=== PATIENT | female | born 1950 | race Caucasian/White ===

== ENCOUNTER → 2016-07-23 13:09 | Outpatient (CLI) | payer MEDICARE, OTHER ==
[2014-12-06 08:45] VITALS: BMI 36.5
[~2016-07-23 13:09] MED LIST: BAYER CHEWABLE81 MG PO; BIOTIN5 MG PO; DILAUDID2 MG PO; PRAVACHOL40 MG PO; PRILOSEC20 MG PO; PROZAC20 MG PO; ZESTRIL20 MG PO; ZYRTEC10 MG PO
== END | disposition home or self-care (01) ==
LOC: D.MRI 13:09
DX: M54.2 Cervicalgia (principal)

== ENCOUNTER → 2016-11-15 08:09 | Outpatient (CLI) | payer MEDICARE, OTHER ==
[2014-12-06 08:45] VITALS: BMI 36.5
== END | disposition home or self-care (01) ==
LOC: D.RAD 08:09
DX: K21.9 Gastro-esophageal reflux disease without esophagitis (principal); R13.12 Dysphagia, oropharyngeal phase

== ENCOUNTER → 2016-11-16 12:40 | Outpatient (CLI) | payer MEDICARE, OTHER ==
[2014-12-06 08:45] VITALS: BMI 36.5
== END | disposition home or self-care (01) ==
LOC: D.RAD 11-15 08:30
DX: K21.9 Gastro-esophageal reflux disease without esophagitis (principal); R13.12 Dysphagia, oropharyngeal phase; R05 Cough

== ENCOUNTER 2016-12-21 05:17 | Day surgery (SDC) | payer MEDICARE, OTHER ==
[2016-12-20 12:29] LABS: BASOPHILS 0.4 % (0-2); EOSINOPHILS 1.1 % (0-7); HEMOGLOBIN 12.9 g/dL (12-16); IMMATURE GRANULOCYTES 0.2 % (0-5); LYMPHOCYTES 27.2 % (15-50); MCH 30.1 pg (26.0-34.0); MCHC 33.1 g/dL (31.0-37.0); MCV 91.1 fL (80.0-100.0); MEAN PLATELET VOLUME 10.4 fL (7.4-10.4); MONOCYTES 6.9 % (2-11); NEUTROPHILS 64.2 % (40-80); PLATELET COUNT 186 10x3/uL (130-400); RBC 4.28 10x6/uL (4.00-5.40); WBC 5.7 10x3/uL (4.8-10.8)
[2016-12-20 12:32] LABS: ANION GAP 11.1 mmol/L (8-16); CALCIUM 8.4 mg/dL (8.5-10.1); CARBON DIOXIDE 27.3 mmol/L (21.0-32.0); CREATININE - SERUM 0.9 mg/dL (0.6-1.3); POTASSIUM - SERUM 4.4 mmol/L (3.5-5.1)
[~2016-12-21 05:17] MED LIST changes: +CALTRATE 600 M600 M1 PO; +CARAFATE1 G PO; +NEXIUM20 MG PO; +NEXIUM40 MG PO; +PEPCID40 MG; +VITAMIN D2000 UNIT PO
[2016-12-21 08:51] VITALS: BP 149/77; BMI 37.0
--- NOTE | 2016-12-21 12:30 | NUR ---
THE PATIENT REPORTS SHE HAS CHRONIC NECK PAIN AND HAS THIS SAME DISCOMFORT IN RECOVERY. DILAUDID ADMIN FOR DISCOMFORT IN NECK
[2016-12-21 12:53] VITALS: BP 143/87
--- NOTE | 2016-12-21 12:56 | NUR ---
PT RECIEVED TO ROOM 2225 VIA BED FROM RECOVERY ROOM BEDSIDE REPORT GIVEN PER LUCIANA TAYLOR. LAP SITES X 5 NOTED WITH BANDAIDS CLEAN DRY AND INTACT MINIMAL OOZING NOTED TO LAP SITE LEFT UQ. COMPLAIN OF ARTHRITIC PAIN IN NECK REPOSITIONED FOR COMFORT VS WNL ON O2 AT 2LPM NC. ORINETD TO ROOM AND STAFF CALL LIGHT IN REACH. FAMILY AT SIDE
[2016-12-21 14:13] VITALS: BP 143/87; BMI 36.6
--- NOTE | 2016-12-21 14:40 | NUR ---
STATES PAIN IS MUCH MORE BETTER AT A 4 NOW.
[2016-12-21 15:46] VITALS: BP 108/58
--- NOTE | 2016-12-21 16:20 | NUR ---
RESTING WITH EYES CLOSED. RESP EVEN AND UNLABORED. CALL LIGHT IN REACH.
--- NOTE | 2016-12-21 18:55 | NUR ---
IV TYLENOL AND REGLAN ADMINISTERED. INCENTIVE SPIROMETER GIVEN TO PATIENT AND EXPLAINED USE WITH RETURN DEMONSTRATION. NO OTHER CHANGES IN INITIAL ASSESSMENT. CALL LIGHT IN REACH. AT BEDSIDE. WILL CONTINUE WITH PLAN OF CARE.
--- NOTE | 2016-12-21 19:17 | NUR ---
ASSISTED TO BR AND BACK TO BED WITH 400 CC URINE RETURN
[2016-12-21 20:00] VITALS: BP 109/70
--- NOTE | 2016-12-22 01:44 | NUR ---
PATIENT RESTING IN BED WITH EYES CLOSED AND GUEST AT BEDSIDE. NO VISIBLE SIGNS OF DISTRESS. BED IN LOWEST POSITION AND CALL LIGHT WITHIN REACH.
[2016-12-22 04:00] VITALS: BP 107/52
[2016-12-22 06:07] LABS: CALC OSMOLALITY 274 mosm/kg (275-300); CALCIUM 7.9 mg/dL (8.5-10.1); CHLORIDE - SERUM 104 mmol/L (98-107); CREATININE - SERUM 0.8 mg/dL (0.6-1.3); GLUCOSE 103 mg/dL (74-106); SODIUM 137 mmol/L (136-145); eGFR NON AFRICAN AMERICAN 76 mL/min (90-120)
[2016-12-22 06:31] LABS: UREA NITROGEN 14 mg/dL (7-18)
[2016-12-22 06:42] LABS: BASOPHILS 0 % (0-2); EOSINOPHILS 0 % (0-7); HEMATOCRIT 34.8 % (36.0-48.0); HEMOGLOBIN 11.5 g/dL (12-16); IMMATURE GRANULOCYTES 0.2 % (0-5); LYMPHOCYTES 9.6 % (15-50); MCH 30.1 pg (26.0-34.0); MCV 91.1 fL (80.0-100.0); MEAN PLATELET VOLUME 10.7 fL (7.4-10.4); MONOCYTES 5.5 % (2-11); NEUTROPHILS 84.7 % (40-80); PLATELET COUNT 181 10x3/uL (130-400); RBC 3.82 10x6/uL (4.00-5.40); RDW 12.8 % (11.5-14.5)
[2016-12-22 06:48] LABS: WBC 9.3 10x3/uL (4.8-10.8)
--- NOTE | 2016-12-22 07:20 | NUR ---
REPORT RECEIVED FROM ASSEMBLER TRIM NURSE. CALL LIGHT IN REACH.
[2016-12-22 07:50] VITALS: BP 106/42
--- NOTE | 2016-12-22 08:32 | NUR ---
ASSESSMENT COMPLETED. SCDs TO BLE. CALL LIGHT IN REACH. WILL CONTINUE WITH PLAN OF CARE.
--- NOTE | 2016-12-22 09:40 | NUR ---
AT BEDSIDE. DENIES NEEDS AT THIS TIME. CALL LIGHT IN REACH/
--- NOTE | 2016-12-22 11:44 | NUR ---
PATIENT IN BED WITH EYES OPEN AT THIS TIME. NO COMPLAINTS OR SIGNS OF DISTRESS. DENIES ANY NEEDS AT THIS TIME. FAMILY AT BEDSIDE. CALL LIGHT WITHIN REACH.
[2016-12-22 12:11] VITALS: BP 104/44
--- NOTE | 2016-12-22 12:47 | NUR ---
REGTHERESE IVP PER ORDER. CALL LIGHT IN REACH.
--- NOTE | 2016-12-22 12:51 | NUR ---
NEWBORN PHOTOGRAPHER DC'D PER MD ORDER.
--- NOTE | 2016-12-22 13:33 | NUR ---
AMBULATED 500 FEET IN HALLWAY WITH STANDBY ASSIST. TOLERATED WELL. ALSO TOLERATED CLEAR LIQUID DIET WITH NO N/V AFTERWARDS. IN ROOM. CALL LIGHT IN REACH.
--- NOTE | 2016-12-22 14:45 | NUR ---
RASH NOTED TO FACE, CHEST, AND BILATERAL ARMS. SPOKE WITH DR. AU ABOUT IT. NEW ORDERS RECEIVED FOR BENADRYL.
--- NOTE | 2016-12-22 14:51 | NUR ---
BENADRYL 25 MG PO PER MD ORDER. CALL LIGHT IN REACH.
[2016-12-22 15:48] VITALS: BP 97/47
[2016-12-22] MEDS ORDERED: REGLAN10 MG PO (16:49)
[2016-12-22] MEDS ORDERED: DILAUDID2 MG PO (16:49)
--- NOTE | 2016-12-22 16:58 | NUR ---
IV DC'D WITH TIP INTACT.
--- NOTE | 2016-12-22 17:54 | NUR ---
DILAUDID 2 MG PO PER C/O PAIN OF 9. DC INSTRUCTIONS EXPLAINED TO PATIENT. RX FOR DILAUDID HANDED TO PATIENT. DC INSTRUCTIONS EXPLAINED TO PATIENT AND . BOTH VERBALIZED UNDERSTANDING. DC'D TO VEHICLE VIA WC WITH .
--- NOTE | 2016-12-24 14:02 | OP ---
PATIENT NAME: TOÑITO REEDER [facility] MEDICAL RECORD: [id number] :50 LOCATION:D.OPS ADMISSION DATE: SURGEON: MAYANK AU MD DATE OF OPERATION: 12/21/2016 PREOPERATIVE DIAGNOSES: 1. Gastroesophageal reflux disease. 2. Hiatal hernia. 3. Coronary artery disease. 4. Hypertension. 5. Hypercholesterolemia. 6. Fibromyalgia. POSTOPERATIVE DIAGNOSES: 1. Gastroesophageal reflux disease. 2. Hiatal hernia. 3. Coronary artery disease. 4. Hypertension. 5. Hypercholesterolemia. 6. Fibromyalgia. PROCEDURE: Laparoscopic Becky fundoplication with hiatal hernia repair. SURGEON: Mayank Au MD REPORT OF PROCEDURE: The patient's abdomen was prepped and draped in sterile fashion. A Veress needle was inserted in the left upper quadrant and the abdomen was insufflated. An 11-mm Visiport trocar was inserted in the midline just above the umbilicus. Once inside, I could see the Veress needle and there was no sign of any injury to bowel or surrounding structures. The Veress needle was then removed. A 5-mm trocar was placed in the left lateral abdomen. Using this, I was able to take down some adhesions of the omentum to the anterior abdominal wall from the patient's left upper quadrant. Once these adhesions were freed, then the 11-mm trocar was placed in the left subcostal region. A 5-mm trocar was placed in the epigastrium and a final 5-mm trocar was placed in the right lateral subcostal region. A liver retractor was inserted and the left lobe of the liver was elevated. The patient had a moderate-sized hiatal hernia with about a third of the stomach up in the chest. The lesser omentum was taken down using Harmonic scalpel and this dissection was continued up to the right side of the right maritza. We dissected out this maritza and we extended our dissection up into the chest cavity. Once we had gone as far as we could, then we came to the greater curvature of the stomach and took down the short gastrics using Harmonic scalpel. This was continued from the body of the stomach to the left side of the right maritza. This crura was dissected free from the surrounding attachments and at this point we had a 360-degree inspection of the esophagus. We continued our dissection up into the thoracic cavity to take down any adhesions. At this point, the stomach easily came down out of the thoracic cavity and rested comfortably in the abdomen. The esophageal hiatus was then reapproximated with interrupted 0 Polydek times 3. The fundus of the stomach was then pulled around in a 360-degree fashion and a Becky wrap was performed. This was done using interrupted 0 Polydek times 3 with the top and the bottom suture incorporating a bite of the esophagus. The wrap appeared to lie in good position. There was no sign of any active bleeding. We then irrigated out the abdomen thoroughly with normal saline. The liver retractor was removed. At this point, the ports and insufflation were then removed. The 11-mm trocar site OPERATIVE REPORT [id number] TOÑITO REEDER JOSH fascias were closed with 0 Vicryl using a Alonzo-Ronald suture passer device. The subcutaneous tissues were then irrigated out and infused with a total of 20 mL of 0.25% Marcaine with epinephrine. The skin incisions were all closed with subcutaneous 5-0 Monocryl and dressed appropriately. COMPLICATIONS: None. CONDITION: Stable. ANESTHESIA: General endotracheal and local. BLOOD LOSS: Minimal. TRANSINT:[id number] Voice Confirmation ID: [id number] DOCUMENT ID: [id number] MAYANK AU MD at 1402 CC: CAS SESAY MD and HIPOLITO CLAYTON MD [id number] DICTATION DATE: 12/21/16 1213 BUSINESS LEADER: 12/21/16 1248 [facility] 12/22/16 [id number] [place] [address]
== END 2016-12-22 17:54 | disposition home or self-care (01) ==
LOC: D.MS 05:17 → D.OPS 05:17 → D.PAN 09:30 → D.OPS 10:00 → D.MS 12:49 → D.OPS 12-22 17:54
PROVIDERS: Surgery
DX: K21.9 Gastro-esophageal reflux disease without esophagitis (principal); K44.9 Diaphragmatic hernia without obstruction or gangrene; I25.10 Atherosclerotic heart disease of native coronary artery without angina pectoris; I10 Essential (primary) hypertension; E78.00 Pure hypercholesterolemia, unspecified; M79.7 Fibromyalgia; Z01.812 Encounter for preprocedural laboratory examination

== ENCOUNTER → 2017-02-04 08:51 | Outpatient (CLI) | payer MEDICARE, OTHER ==
[~2017-02-04 08:51] MED LIST changes: +MIRALAX17 GM PO; +REGLAN10 MG PO
== END | disposition home or self-care (01) ==
LOC: D.RAD 08:51
DX: R13.10 Dysphagia, unspecified (principal)

== ENCOUNTER 2017-02-07 19:57 | Emergency (ER) | payer MEDICARE, OTHER ==
[~2017-02-07 19:57] MED LIST changes: -MIRALAX17 GM PO
[2017-02-07 20:39] LABS: BASOPHILS 0.2 % (0-2); EOSINOPHILS 0.3 % (0-7); HEMATOCRIT 41.1 % (36.0-48.0); HEMOGLOBIN 13.5 g/dL (12-16); IMMATURE GRANULOCYTES 0.1 % (0-5); LYMPHOCYTES 16.4 % (15-50); MCH 30.1 pg (26.0-34.0); MCHC 32.8 g/dL (31.0-37.0); MCV 91.5 fL (80.0-100.0); MONOCYTES 4.8 % (2-11); NEUTROPHILS 78.2 % (40-80); PLATELET COUNT 227 10x3/uL (130-400); RBC 4.49 10x6/uL (4.00-5.40); RDW 12.9 % (11.5-14.5); WBC 9.1 10x3/uL (4.8-10.8)
[2017-02-07 20:52] LABS: APPEARANCE CLEAR (CLEAR); BILIRUBIN NEGATIVE (NEGATIVE); COLOR YELLOW (YELLOW); GLUCOSE NEGATIVE (NEGATIVE); KETONE NEGATIVE (NEGATIVE); NITRITE NEGATIVE (NEGATIVE); PROTEIN NEGATIVE (NEGATIVE); UROBILINOGEN NORMAL (NORMAL)
[2017-02-07 20:58] LABS: ALBUMIN 3.9 g/dL (3.4-5.0); ANION GAP 15.1 mmol/L (8-16); BILIRUBIN - TOTAL 0.3 mg/dL (0.2-1.3); CALCIUM 8.8 mg/dL (8.5-10.1); CARBON DIOXIDE 24.9 mmol/L (21.0-32.0); CREATININE - SERUM 0.9 mg/dL (0.6-1.3); PROTEIN - SERUM 7.3 g/dL (6.4-8.2)
== END 2017-02-08 02:43 | disposition home or self-care (01) ==
LOC: D.ER 19:57
PROVIDERS: Emergency Medicine
DX: R10.9 Unspecified abdominal pain (principal)

== ENCOUNTER 2017-02-09 11:12 | Inpatient (IN) | payer MEDICARE, OTHER ==
[~2017-02-09] VITALS: Ht 157.5 cm; Wt 84.8 kg
[2017-02-09 12:16] VITALS: BP 105/57; BMI 34.3
[2017-02-09 12:35] LABS: BASOPHILS 0 % (0-2); EOSINOPHILS 0 % (0-7); HEMATOCRIT 40.9 % (36.0-48.0); HEMOGLOBIN 13.3 g/dL (12-16); IMMATURE GRANULOCYTES 0.2 % (0-5); MCH 30.4 pg (26.0-34.0); MCHC 32.5 g/dL (31.0-37.0); MCV 93.4 fL (80.0-100.0); MEAN PLATELET VOLUME 10.8 fL (7.4-10.4); MONOCYTES 5.6 % (2-11); NEUTROPHILS 89.2 % (40-80); PLATELET COUNT 197 10x3/uL (130-400); RBC 4.38 10x6/uL (4.00-5.40); RDW 12.9 % (11.5-14.5)
[2017-02-09 12:53] LABS: ALBUMIN 3.3 g/dL (3.4-5.0); BILIRUBIN - TOTAL 0.46 mg/dL (0.2-1.3); CALCIUM 8.6 mg/dL (8.5-10.1); CREATININE - SERUM 0.9 mg/dL (0.6-1.3); POTASSIUM - SERUM 3.7 mmol/L (3.5-5.1); PROTEIN - SERUM 6.5 g/dL (6.4-8.2)
[2017-02-09 12:55] LABS: CARBON DIOXIDE 31.7 mmol/L (21.0-32.0)
[2017-02-09 12:59] LABS: WBC 13.5 10x3/uL (4.8-10.8)
--- NOTE | 2017-02-09 15:00 | NUR ---
SPOKE WITH DR AU TO NOTIFY HIM NGT WAS PLACED BEFORE ACKNOWLEDGING ORDER, DR AU IS FINE TO CON'T NGT.
--- NOTE | 2017-02-09 15:03 | NUR ---
NGT TO R NARE PLACED, VERIFIED PLACEMENT WITH CLAUDIA FRAIRE. PATRIA ORDERED. JIM.
[2017-02-09 18:24] VITALS: BP 127/63
[2017-02-09 20:00] VITALS: BP 117/50
[2017-02-10 04:00] VITALS: BP 126/61
[2017-02-10 05:10] LABS: BASOPHILS 0 % (0-2); EOSINOPHILS 0.2 % (0-7); HEMATOCRIT 40.1 % (36.0-48.0); HEMOGLOBIN 12.8 g/dL (12-16); IMMATURE GRANULOCYTES 0.2 % (0-5); LYMPHOCYTES 6.4 % (15-50); MCH 30.1 pg (26.0-34.0); MCHC 31.9 g/dL (31.0-37.0); MCV 94.4 fL (80.0-100.0); MEAN PLATELET VOLUME 11.4 fL (7.4-10.4); MONOCYTES 7.6 % (2-11); NEUTROPHILS 85.6 % (40-80); PLATELET COUNT 193 10x3/uL (130-400); RBC 4.25 10x6/uL (4.00-5.40); RDW 13.2 % (11.5-14.5); WBC 10.9 10x3/uL (4.8-10.8)
[2017-02-10 05:27] LABS: CALC OSMOLALITY 281 mosm/kg (275-300); CALCIUM 8.2 mg/dL (8.5-10.1); CARBON DIOXIDE 29.7 mmol/L (21.0-32.0); CHLORIDE - SERUM 103 mmol/L (98-107); CREATININE - SERUM 0.8 mg/dL (0.6-1.3); GLUCOSE 125 mg/dL (74-106); POTASSIUM - SERUM 3.6 mmol/L (3.5-5.1); SODIUM 140 mmol/L (136-145); UREA NITROGEN 19 mg/dL (7-18); eGFR NON AFRICAN AMERICAN 76 mL/min (90-120)
[2017-02-10 06:51] LABS: APPEARANCE CLEAR (CLEAR); COLOR DK YELLOW (YELLOW); SPECIFIC GRAVITY 1.025 (1.005-1.020)
[2017-02-10 06:52] LABS: BACTERIA MODERATE /hpf (NONE SEEN); BILIRUBIN NEGATIVE (NEGATIVE); EPITHELIAL CELLS 0-5 /hpf (0-5); GLUCOSE NEGATIVE (NEGATIVE); KETONE NEGATIVE (NEGATIVE); MUCUS >1+ /lpf (NONE SEEN); NITRITE NEGATIVE (NEGATIVE); PROTEIN NEGATIVE (NEGATIVE); RED CELLS - URINE 0-5 /hpf (0-5); WHITE CELLS - URINE 0-5 /hpf (0-5)
--- NOTE | 2017-02-10 07:18 | HP ---
PATIENT: TOÑITO REEDER MEDICAL RECORD: [id number] ACCOUNT: [id number] LOCATION:D.MS [id number] : 50 ADMISSION DATE: 02/09/17 HISTORY AND PHYSICAL EXAMINATION DATE OF ADMISSION: 02/09/17 CHIEF COMPLAINT: Abdominal pain for the past 2 days. HISTORY OF PRESENT ILLNESS: The patient is a 66-year-old female who had complained of intermittent abdominal pain. She has had dry heaves. She has reported having no BM in the last several days. She did present to the Emergency Room last night where she was given laxatives without any relief. She presents complaining of tremendous pain. The patient apparently had a CT scan, which was unremarkable last night with the exception of having large amount of stool. PAST MEDICAL HISTORY: Her past history is significant for having had hypertension. She has had hyperlipidemia, gastroesophageal reflux, onychomycosis, and vitamin D deficiency. She is . Postmenopausal syndrome. FAMILY HISTORY: Mother had diabetes, at age 76. Father had malignant prostate cancer, at 88 years of age. ALLERGIES: BACTRIM, CELEBREX, CYMBALTA, AND NEURONTIN. MEDICATIONS: Include aspirin 81 mg one p.o. daily, Flexeril 10 mg q. 8 hours p.r.n. pain, Pepcid 20 mg p.o. daily, fluoxetine 20 mg one p.o. b.i.d., lisinopril 20 mg daily, pravastatin 80 mg daily, and ranitidine 150 mg at bedtime. HABITS: The patient has never been a smoker and never been a drinker. She is . Occasionally does have caffeine consumption. PAST SURGICAL HISTORY: She has had hiatal hernia repair with mesh. She had cholecystectomy and retinal repair. She had kidney stones. REVIEW OF SYSTEMS: CONSTITUTIONAL: She denies any headache, seizure, or syncope. She denies change in visual or auditory acuity. PULMONARY: She denies any shortness of breath, cough, congestion, history of TB, asthma, or bronchitis. CARDIOVASCULAR: She has had no chest pain, palpitation, PND, or orthopnea. GASTROINTESTINAL: No chronic nausea, vomiting, melena, or hematochezia. GENITOURINARY: No urgency, frequency, or dysuria. PHYSICAL EXAMINATION: VITAL SIGNS: Her height is 5 feet 2 inches and her weight is 187. Blood pressure was 118/64, pulse was 88, temperature 97.4, and respirations 20. HEENT: Head is normocephalic. No lesions. Ears; TMs clear. Eyes; pupils are equal, round, and reactive to light. Her extraocular movements are intact. Nasal cavity, oral cavity, and oropharynx are clear. NECK: Supple. There is no adenopathy. HEART: Regular rate. HISTORY AND PHYSICAL [id number] VARINDER,TOÑITO JOSH LUNGS: Clear. ABDOMEN: Protuberant. She has diffuse tenderness. She has absence of bowel sounds. DIAGNOSTIC DATA: KUB showed diffuse air-fluid levels with dilated colon. ASSESSMENT: Bowel obstruction, history of hiatal hernia repair, hypertension, status post hysterectomy, depression, and hyperlipidemia. PLAN: The patient will be admitted. NG suction will be obtained. Surgical consultation will be obtained as well. She will be given IV hydration. TRANSINT:[id number] Voice Confirmation ID: [id number] DOCUMENT ID: [id number] CAS SESAY MD at 0718 CC: [id number] DICTATION DATE: 02/09/17 1144 MANAGER AUDIO: 02/09/17 1233 ADM IN [facility] [address] [place] [address]
--- NOTE | 2017-02-10 07:40 | NUR ---
ASSESSMENT COMPLETE. IV TO R WRIST PATENT. D5NS INFUSING AT 125 CC/HR VIA PUMP. NG TO LIS. DARK GREEN DRAINAGE NOTED IN CANISTER. DENIES ANY NEEDS AT THIS TIME.
[2017-02-10 08:13] VITALS: BP 138/62
--- NOTE | 2017-02-10 10:55 | NUR ---
OFF FLOOR TO XRAY VIA WC.
--- NOTE | 2017-02-10 11:25 | NUR ---
NG TUBE PLACEMENT VERIFIED BY AUSCULTATION.
[2017-02-10 11:48] VITALS: BP 130/46
--- NOTE | 2017-02-10 13:20 | NUR ---
PATIENT ABLE TO TOLERATE 1450 CC'S OF GOLYTLELY PREP BEFORE BECOMING NAUSEATED. FAMILY AT BEDSIDE.
--- NOTE | 2017-02-10 15:25 | NUR ---
COMPLAINING OF ABDOMINAL PAIN. ABDOMEN MORE DISTENDED. DR AU NOTIFIED. INSTRUCTED TO RECONNECT NG TUBE TO SUCTION.
--- NOTE | 2017-02-10 15:30 | NUR ---
IMMEDIATE RETURN OF 400 CC'S OF GREENISH DRAINAGE SUCTIONED. COMPLAINING OF ABDOMINAL CRAMPING. FAMILY AT BEDSIDE.
--- NOTE | 2017-02-10 16:30 | NUR ---
REPORTS BEING MUCH MORE COMFORTABLE AT THIS TIME. DENIES ANY NEEDS AT THIS TIME.
[2017-02-10 16:56] VITALS: BP 137/77
--- NOTE | 2017-02-10 19:45 | NUR ---
PATIENT AMBULATED 3 LAPS AROUND NURSE STATION. GAIT STRONG AND STEADY. WALKED BESIDE PATIENT AND PUSHED THE IV POLE. PATIENT DID NOT REQUIRE ANY ASSISTANCE.
[2017-02-10 20:00] VITALS: BP 135/80
--- NOTE | 2017-02-10 20:10 | NUR ---
EXPLAINED TO PATIENT THAT THE NURSE FROM [facility] SAID WANTS US TO TRY TO GET SOME MORE GOLYTELY DOWN. TOLD PATIENT TO TELL ME WHEN SHE FEELS READY. SHE STATED SHE IS READY NOW. PUT 45OML OF GOLYTELY THROUGH NGT, AFTER CHECKING PLACEMENT. TOLD PATIENT TO TELL ME IF SHE STARTS TO FEEL DISCOMFORT OF NAUSEA. SHE AGREED.
--- NOTE | 2017-02-10 20:45 | NUR ---
PATIENT DENIES NAUSEA AND STATED SHE IS READY FOR MORE GOLYTELY. PUT 240ML OF GOLYTELY THOUGH NGT. TOLD PATIENT TO CALL IF SHE FEELS NAUSEOUS. PATIENT'S DAUGHTER ASKED IF WALKING COULD BE BENIFICIAL. I STATED "YES, ACTIVITY IS ENCOURAGED IN PATIENT'S WITH BOWEL OBSTRUCTIONS IT CAN IN SOME SITUATIONS HELP THINGS TO MOVE THROUGH THE INTESTINES." DAUGHTER STATED SHE WILL PUSH THE IV POLE AND WALK AROUND THE [place] WITH PATIENT. THEY BOTH GOT UP AND WENT TO THE [place] TO WALK.
--- NOTE | 2017-02-10 21:35 | NUR ---
PATIENT PUSHED HER CALL LIGHT. SHE STATED "I FEEL BAD ALL OVER. I DO NOT EVEN HAVE THE URGE TO USE THE BATHROOM. I JUST HURT, AND I AM NAUSEOUS." SHE REQUESTED DILAUDID AND ZOFRAN. HOOKED HER BACK UP TO THE NGT. SEE MAR FOR MEDS.
--- NOTE | 2017-02-10 23:00 | NUR ---
PATIENT IS LAYING IN BED WATCHING TV. PATIENT STATED "I FEEL MUCH BETTER NOW. MY PAIN IS TOTALLY GONE, ITS AT A 0/10". PATIENT AND HER DAUGHTER DENY NEEDS AT THIS TIME.
[2017-02-11] VITALS: BP 119/59
[2017-02-11 04:00] VITALS: BP 121/50
[2017-02-11 04:42] LABS: CALC OSMOLALITY 281 mosm/kg (275-300); CARBON DIOXIDE 29.3 mmol/L (21.0-32.0); CHLORIDE - SERUM 106 mmol/L (98-107); CREATININE - SERUM 0.7 mg/dL (0.6-1.3); GLUCOSE 122 mg/dL (74-106); POTASSIUM - SERUM 3.4 mmol/L (3.5-5.1); SODIUM 141 mmol/L (136-145); UREA NITROGEN 13 mg/dL (7-18); eGFR NON AFRICAN AMERICAN 89 mL/min (90-120)
[2017-02-11 04:44] LABS: BASOPHILS 0.1 % (0-2); EOSINOPHILS 0.5 % (0-7); HEMATOCRIT 36.6 % (36.0-48.0); HEMOGLOBIN 11.8 g/dL (12-16); IMMATURE GRANULOCYTES 0.2 % (0-5); LYMPHOCYTES 10.9 % (15-50); MCH 30.2 pg (26.0-34.0); MCHC 32.2 g/dL (31.0-37.0); MCV 93.6 fL (80.0-100.0); MEAN PLATELET VOLUME 10.8 fL (7.4-10.4); MONOCYTES 8.6 % (2-11); NEUTROPHILS 79.7 % (40-80); PLATELET COUNT 178 10x3/uL (130-400); RBC 3.91 10x6/uL (4.00-5.40); WBC 9.4 10x3/uL (4.8-10.8)
--- NOTE | 2017-02-11 06:10 | NUR ---
PATIENT'S NGT OUT, PATIENT STATED SHE PULLED IT OUT IN HER SLEEP
[2017-02-11 07:54] VITALS: BP 124/64
[2017-02-11 12:00] VITALS: Ht 157.5 cm; Wt 84.8 kg
[2017-02-11 15:27] VITALS: BP 152/83
--- NOTE | 2017-02-11 15:30 | NUR ---
PT PAIN 12/28, FAMILY C/O PAIN AND "NOTHING BEING DONE." CALLED DR. AU AND HE ORDERED COLONOSCOPY FOR THE A.M.
--- NOTE | 2017-02-11 15:32 | NUR ---
FAMILY NOTIFIED THAT COLONOSCOPY WILL BE DONE IN THE A.M. FAMILY IS NOT SATISFIED WITH THAT AND REQUEST DR. AU HAVE SOMETHING DONE TONIGHT. DR. AU NOTIFIED OF FAMILY REQUEST, STATED "I WILL COME UP THERE IN THE MORNING LIKE I HAVE ORDERED, AND YOU CAN GIVE HER A ONE TIME IV DOSE OF 30MG TORADOL."
--- NOTE | 2017-02-11 15:40 | NUR ---
FAMILY NOTIFIED OF NEW MEDICATOIN AND DR. AU WILL DO COLONOSCOPY IN THE A.M., DAUGHTER STATED "IF HER INTESTINES EXPLODE AND SHE DIES JUST KNOW WE HAVE ASKED A FEW TIMES." PT STATES HER PAIN IS GETTING BETTER 08/28. NO OTHER NEEDS VOICED AT THIS TIME.
[2017-02-11 20:00] VITALS: BP 109/76
[2017-02-12] VITALS: BP 115/77
--- NOTE | 2017-02-12 | NUR ---
PT PASSING LARGE VOLUME YELLOW/ORANGE LIQUID RECTALLY. PT STATES SHE "FEELS SO MUCH RELIEF." CHANGED BED GOWN/LINEN. PLACED BEDSIDE COMMODE FOR CONVENIENCE. PT RATES PAIN 0/10. NO OTHER NEEDS. WILL CONTINUE TO MONITOR.
--- NOTE | 2017-02-12 03:56 | NUR ---
PT CONTINUES TO PASS ORANGE/DORMAN LIQUID STOOL. DENIES PAIN. WILL CONTINUE TO MONITOR.
[2017-02-12 04:00] VITALS: BP 160/82
--- NOTE | 2017-02-12 04:10 | NUR ---
STOOLS ARE NOW DARK ORANGE COLOR. WILL CONTINUE TO MONITOR.
[2017-02-12 04:31] LABS: BASOPHILS 0.1 % (0-2); EOSINOPHILS 0 % (0-7); HEMATOCRIT 40.2 % (36.0-48.0); HEMOGLOBIN 12.8 g/dL (12-16); IMMATURE GRANULOCYTES 0.1 % (0-5); LYMPHOCYTES 4.4 % (15-50); MCH 29.8 pg (26.0-34.0); MCHC 31.8 g/dL (31.0-37.0); MCV 93.7 fL (80.0-100.0); MEAN PLATELET VOLUME 10.8 fL (7.4-10.4); MONOCYTES 10.1 % (2-11); NEUTROPHILS 85.3 % (40-80); RBC 4.29 10x6/uL (4.00-5.40); RDW 13.2 % (11.5-14.5); WBC 10.6 10x3/uL (4.8-10.8)
[2017-02-12 04:32] LABS: PLATELET COUNT 223 10x3/uL (130-400)
[2017-02-12 04:37] LABS: ANION GAP 12.1 mmol/L (8-16); CALCIUM 8.9 mg/dL (8.5-10.1); CARBON DIOXIDE 28.9 mmol/L (21.0-32.0)
[2017-02-12 04:40] LABS: CREATININE - SERUM 0.9 mg/dL (0.6-1.3)
--- NOTE | 2017-02-12 07:50 | NUR ---
PT AOX4 RESP EVEN AND NONLABORED PT DENIES NEEDS AT THIS TIME IV TO RIGHT FOREARM PATENT AND INTACT AT THIS TIME SRX2 BED AT LOWEST SETTING CALL LIGHT WITHIN REACH WILL CONTINUE TO MONITOR
[2017-02-12 08:50] VITALS: BP 142/70
[2017-02-12 12:55] VITALS: BP 121/663
[2017-02-12 16:50] VITALS: BP 143/67
[2017-02-12 20:00] VITALS: BP 111/57
[2017-02-13] VITALS: BP 108/55
[2017-02-13 04:00] VITALS: BP 125/68
[2017-02-13] MEDS ORDERED: MIRALAX17 GM PO (08:24)
[2017-02-13 08:42] VITALS: BP 127/54
--- NOTE | 2017-02-13 13:00 | NUR ---
FAMILY MEMBER AT DESK REQUESTING THAT SOMEONE COME & CHECK HER MOTHER. 1 AGONAL BREATH VISUALISED. ACCOMPANIED BY SONYA HAQ RN. AUSCULTATION OF CHEST REVEALED NO HEART SOUNDS OR AIR MOVEMENT. FAMILY INFORMED. NUMEROUS FAMILY MEMBERS ARE AT BEDSIDE. CALL PLACED TO HOSPICE NURSE & HOUSE SUPERVISIOR.
--- NOTE | 2017-02-13 14:20 | NUR ---
IV DISCONTINUED WITH CATHETER INTACT AT THIS TIME PT GIVEN DISCHARGED INSTRUCTIONS AND STATED UNDERSTANDING. PT TAKEN VIA WHEELCHAIR VIA PRIVATE VEHICLE AT THIS TIME
--- NOTE | 2017-04-05 07:19 | DS ---
PATIENT:TOÑITO REEDER :50 MEDICAL RECORD: [id number] DISCHARGE SUMMARY ADMISSION DATE: 02/09/17 DISCHARGE DATE: 02/13/17 DATE OF ADMISSION: 02/09/2017. DATE OF DISCHARGE: 02/13/2017. CONDITION ON DISCHARGE: Improved. ADMITTING DIAGNOSES: Bowel obstruction, history of hiatal hernia repair, hypertension, status post hysterectomy, depression, and hyperlipidemia. DISCHARGE DIAGNOSES: Drug-induced constipation, bowel obstruction, hyperlipidemia, gastroesophageal reflux, hypertension, depression. HOSPITAL COURSE: This patient is a 66-year-old female who had complained of intermittent abdominal pain. She had developed dry heave. She had reported having no BMs. Over the past several days, she did present to the Emergency Room where she was given laxatives without any relief. The patient continued to complain of tremendous pain. CT scan was unremarkable on the night prior to her admission except for having a large amount of stool. PHYSICAL EXAMINATION: VITAL SIGNS: She was afebrile. Her vital signs were stable. HEENT: Unremarkable. NECK: Supple. There was no adenopathy. HEART: Regular rate. LUNGS: Clear. ABDOMEN: She was diffusely tender. She had absence of bowel sounds. KUB showed diffuse air-fluid levels. Therefore, the patient was admitted. NG suction was placed. Surgical consultation was obtained. KUB showed enteric tube noted in the tip of the stomach, moderate gaseous distention of the large and small bowel. She was seen in consultation by Dr. Mayank Conway. The patient was noted to have been 6 weeks status post laparoscopic Becky fundoplication. She was given suppositories to hopefully move the barium from the colon, which was causing large bowel obstruction. The patient also was noted to have an elevated white count of 13.5 on admission, her hemoglobin was 13.3, hematocrit 40.9, and platelets 197. Sodium was 138, potassium 3.7, chloride 99, BUN 16, creatinine 0.9, glucose of 123. The patient was started on IV hydration. On the , the patient had had numerous large bowel movements overnight. KUB showed the barium was no longer present in the sigmoid colon. The patient was started on a diet. She did tolerate the diet. Therefore, she was discharged. No obstruction was noted. DISCHARGE INSTRUCTIONS: She would be on MiraLax 17 gram 1 p.o. every day, lisinopril 20 mg p.o. b.i.d., pravastatin 40 mg once a day, Prozac 20 mg once a day, aspirin 81 mg once a day, Zyrtec 10 mg daily, vitamin D3 2000 international units daily, calcium carbonate 600 mg p.o. b.i.d. DIET: She was to be on a high fiber diet. ACTIVITIES: Ad alexus. DISCHARGE SUMMARY REPORT [id number] TOÑITO REEDER FOLLOWUP: She will follow up with me in approximately 2 weeks. TRANSINT:[id number] Voice Confirmation ID: [id number] DOCUMENT ID: [id number] CAS SESAY MD at 0719 CC: [id number] DICTATION DATE: 04/03/17 1412 OFFICE RN: 04/04/17 1232 DIS IN 02/13/17 [id number] [place] [address]
== END 2017-02-13 14:39 | disposition home or self-care (01) | DRG 392 ==
LOC: D.MS 11:12
PROVIDERS: ADMIT Family Medicine
DX: K59.03 Drug induced constipation (principal); K56.609 Unspecified intestinal obstruction, unspecified as to partial versus complete obstruction; T50.8X5A Adverse effect of diagnostic agents, initial encounter; E78.5 Hyperlipidemia, unspecified; K21.9 Gastro-esophageal reflux disease without esophagitis; I10 Essential (primary) hypertension; F32.9 Major depressive disorder, single episode, unspecified

== ENCOUNTER → 2017-03-07 13:54 | Outpatient (CLI) | payer MEDICARE, OTHER ==
[2017-02-11 12:00] VITALS: BMI 34.2
[~2017-03-07 13:54] MED LIST changes: +MIRALAX17 GM PO
== END | disposition home or self-care (01) ==
LOC: D.MAMMO 03-02 10:15
DX: Z12.31 Encounter for screening mammogram for malignant neoplasm of breast (principal)

== ENCOUNTER → 2018-06-02 08:00 | Outpatient (CLI) | payer MEDICARE, OTHER ==
[2017-02-11 12:00] VITALS: BMI 34.2
== END | disposition home or self-care (01) ==
LOC: D.MAMMO 08:00
PROVIDERS: ATTEND Family Medicine
DX: Z12.31 Encounter for screening mammogram for malignant neoplasm of breast (principal)

== ENCOUNTER 2019-04-04 04:21 | Inpatient (IN) | payer MEDICARE, OTHER ==
[2019-04-04] VITALS (9 sets, daily range): BP systolic 94–154; BP diastolic 47–73; BMI 34.8
[~2019-04-04] VITALS: Ht 157.5 cm; Wt 86.2 kg
[2019-04-04 05:22] LABS: BASOPHILS 0.1 % (0-2); EOSINOPHILS 1.1 % (0-7); HEMATOCRIT 45.5 % (36.0-48.0); HEMOGLOBIN 14.9 g/dL (12-16); IMMATURE GRANULOCYTES 0.3 % (0-5); LYMPHOCYTES 5.5 % (15-50); MCHC 32.7 g/dL (31.0-37.0); MCV 91.7 fL (80.0-100.0); MEAN PLATELET VOLUME 10.9 fL (7.4-10.4); MONOCYTES 5.5 % (2-11); NEUTROPHILS 87.5 % (40-80); PLATELET COUNT 203 10x3/uL (130-400); RBC 4.96 10x6/uL (4.00-5.40); RDW 12.4 % (11.5-14.5); WBC 13.9 10x3/uL (4.8-10.8)
[2019-04-04 05:53] LABS: CALC OSMOLALITY 285 mosm/kg (275-300); CALCIUM 7.7 mg/dL (8.5-10.1); CARBON DIOXIDE 22.5 mmol/L (21.0-32.0); CHLORIDE - SERUM 106 mmol/L (98-107); CREATININE - SERUM 0.8 mg/dL (0.6-1.3); GLUCOSE 162 mg/dL (74-106); POTASSIUM - SERUM 4.3 mmol/L (3.5-5.1); SODIUM 139 mmol/L (136-145); UREA NITROGEN 25 mg/dL (7-18); eGFR NON AFRICAN AMERICAN 75 mL/min (90-120)
[2019-04-04 05:58] LABS: APPEARANCE CLEAR (CLEAR); BILIRUBIN NEGATIVE (NEGATIVE); COLOR YELLOW (YELLOW); GLUCOSE NEGATIVE (NEGATIVE); KETONE SMALL mg/dL (NEGATIVE); NITRITE NEGATIVE (NEGATIVE); PROTEIN NEGATIVE (NEGATIVE); UROBILINOGEN NORMAL (NORMAL)
[2019-04-04 05:59] LABS: BACTERIA NONE SEEN /hpf (NEGATIVE); EPITHELIAL CELLS 0-5 /hpf (0-5); RED CELLS - URINE 0-5 /hpf (0-5); WHITE CELLS - URINE 0-5 /hpf (NEGATIVE)
[2019-04-04 06:02] LABS: ALKALINE PHOSPHATASE 56 U/L (46-116); ALT (SGPT) 25 U/L (10-68); AMYLASE - SERUM 127 U/L (25-115); BILIRUBIN - TOTAL 0.45 mg/dL (0.2-1.3); LIPASE 1171 U/L (73-393); PROTEIN - SERUM 6.2 g/dL (6.4-8.2)
[2019-04-04 06:10] LABS: TROPONIN-I < 0.017 ng/mL (0.000-0.060)
--- NOTE | 2019-04-04 06:24 | NUR ---
LOOSE STOOLS X 4 THIS AM LARGE AMOUNTS THIN BROWN STOOL. PERICARE PROVIDED WITH EACH STOOL. PATIENT WITH DRY HEAVES AND INCONTINENCE. NAUSEA IMPROVING AT THIS TIME.BACK FROM CT.RESTING QUIETLY AFTER MORPHINE GIVEN FOR 10/10 PAIN
--- NOTE | 2019-04-04 07:00 | NUR ---
ASSUMED CARE OF PT. RESTING IN BED. CONT TO C/O ABD PAIN. SKIN W/D/P. RESP EVEN/UNLABORED. VSS
--- NOTE | 2019-04-04 07:25 | NUR ---
PT RESTING IN BED WITH SNORING RESP. O2 SATS 88-90% ON RA. PT AROUSES EASILY AND INSTR TO DEEP BREATH "I CAN'T IT HURTS TOO BAD" O2 PLACED @ 2 LPM PNC
--- NOTE | 2019-04-04 08:07 | NUR ---
REPORT CALLED TO CLAUDIA ECHEVERRIA
--- NOTE | 2019-04-04 08:15 | NUR ---
TRANSPORTED TO ROOM #2209, CONDITION STABLE. NS AND FLAGYL INFUSING UPON TX TO ROOM
[2019-04-04] MEDS ORDERED: FAMOTIDINE10 MG PO (08:28)
--- NOTE | 2019-04-04 08:37 | NUR ---
PATIENT ADMITTED TO ROOM 2209. ADMISSION COMPLETE. BED ALARM ON AND EDUCATION PROVIDED. DENIES NEEDS. BED LOW. CALL ANDERSON AND PERSONAL ITEMS IN REACH. AT BEDSIDE. WILL ONTINUE TO MONITOR.
--- NOTE | 2019-04-04 11:00 | NUR ---
TELEMETRY PLACED ON PATIENT PER ORDER.
--- NOTE | 2019-04-04 12:16 | NUR ---
DISCHARGE EDUCATION PROVIDED BOTH WRITTEN AND VERBAL. VERBALIZED UNDERSTANDING. DENIES FURTHER QUESTIONS. NO IV TO REMOVE. DRSG PREVIOUSLY CHANGED. EXTRA DRSG PROVIDED AND EDUCATION PROVIDED TO CHANGE IN ONE WEEK. VERBALIZED UNDERSTANDING. WAITING RIDE.
--- NOTE | 2019-04-04 17:43 | NUR ---
RESTING IN BED. DENIES NEEDS. WILL CONTINUE TO MONITOR.
[2019-04-05] VITALS: BP 129/56
--- NOTE | 2019-04-05 01:54 | NUR ---
RESTING IN BED NO S/S OF DISTRESS. CALL LIGHT IN REACH.
[2019-04-05 04:00] VITALS: BP 138/50
[2019-04-05 05:07] LABS: BASOPHILS 0 % (0-2); EOSINOPHILS 0.2 % (0-7); HEMATOCRIT 37.5 % (36.0-48.0); HEMOGLOBIN 12.2 g/dL (12-16); IMMATURE GRANULOCYTES 0.2 % (0-5); LYMPHOCYTES 10.9 % (15-50); MCH 29.8 pg (26.0-34.0); MCHC 32.5 g/dL (31.0-37.0); MCV 91.7 fL (80.0-100.0); MEAN PLATELET VOLUME 10.4 fL (7.4-10.4); NEUTROPHILS 81.7 % (40-80); PLATELET COUNT 165 10x3/uL (130-400); RBC 4.09 10x6/uL (4.00-5.40); RDW 12.6 % (11.5-14.5)
[2019-04-05 05:12] LABS: WBC 5.4 10x3/uL (4.8-10.8)
[2019-04-05 05:15] LABS: APTT 33.3 SECONDS (22.8-39.4); INR 1.1 (0.85-1.17); PROTIME 14.2 SECONDS (11.6-15.0)
[2019-04-05 05:27] LABS: ALBUMIN 2.6 g/dL (3.4-5.0); ALKALINE PHOSPHATASE 57 U/L (46-116); BILIRUBIN - TOTAL 0.28 mg/dL (0.2-1.3); CALCIUM 7.1 mg/dL (8.5-10.1); CHLORIDE - SERUM 110 mmol/L (98-107); CREATININE - SERUM 0.7 mg/dL (0.6-1.3); MAGNESIUM - SERUM 1.8 mg/dL (1.8-2.4); PROTEIN - SERUM 5.5 g/dL (6.4-8.2); SODIUM 141 mmol/L (136-145); eGFR NON AFRICAN AMERICAN 88 mL/min (90-120)
[2019-04-05 05:29] LABS: ALT (SGPT) 126 U/L (10-68); AMYLASE - SERUM 50 U/L (25-115); CALC OSMOLALITY 279 mosm/kg (275-300); GLUCOSE 103 mg/dL (74-106); LIPASE 120 U/L (73-393); POTASSIUM - SERUM 3.5 mmol/L (3.5-5.1); UREA NITROGEN 9 mg/dL (7-18)
--- NOTE | 2019-04-05 07:31 | NUR ---
ALERT AND ORIENTED. LUNGS CLEAR BILATERALLY. HEART SOUNDS S1 AND S2 HEARD IN ALL CALIX. BOWEL SOUNDS ACTIVE X 4. SKIN INTACT WITHOUT REDNESS. IV TO RIGHT AC PATENT WITHOUT REDNESS. NG TUBE PATENT TO RIGHT NARE DRAINING GREEN FLUID. O2 IN PLACE AT 2L. STATES DOES NOT USE AT HOME. WILL ATTEMPT TO WEAN TODAY. TELEMETRY IN PLACE SHOWING 78 NORMAL SINUS. REQUESTING MEDICATION FOR HEADACHE. NO HEADACHE MEDICATION ON MAY. WILL TALK TO DR WHEN ARRIVES. DENIES FURTHER NEEDS. BED LOW. FALL PRECAUTIONS IN PLACE. CALL ANDERSON AND PERSONAL ITEMS IN REACH. WILL CONTINUE TO MONITOR.
[2019-04-05 08:39] VITALS: BP 118/61
--- NOTE | 2019-04-05 09:04 | NUR ---
NG TUBE REMOVED PER ORDER. CLEAR LIQUID TRAY ORDERED FOR PATIENT.
[2019-04-05 10:01] VITALS: Ht 157.5 cm; Wt 86.2 kg
[2019-04-05 12:46] VITALS: BP 105/47
[2019-04-05 17:34] VITALS: BP 96/43
--- NOTE | 2019-04-05 17:41 | NUR ---
RESTING IN BED. DENIES NEEDS. WILL CONTINUE TO MONITOR.
[2019-04-05 22:37] VITALS: BP 118/62
[2019-04-06] VITALS: BP 105/47
--- NOTE | 2019-04-06 03:27 | NUR ---
ALERT AND ORENTED ABLE TO VOICE NEEDS AND WANTS TO STAFF. IV TO RIGHT AC WITH NO S/S OF INFECTION NOTED TA THIS TIME. NS AT 100ML/HR IN PLACE. TELEMETRY/ RHYTHEM 76 SINIS REYTHEM. wATER IN AIRAM AT BEDSIDE. CALL LIGHT IN REACH. SCD'S IN PLACE BED ALARM IN USE. dENIES PAIN AT THIS TIME. CHECKED OFTEN FOR NEEDS AND SAFETY.
[2019-04-06 04:00] VITALS: BP 99/45
[2019-04-06 07:09] LABS: BASOPHILS 0.3 % (0-2); EOSINOPHILS 0.6 % (0-7); HEMATOCRIT 33.7 % (36.0-48.0); HEMOGLOBIN 10.8 g/dL (12-16); IMMATURE GRANULOCYTES 0.3 % (0-5); LYMPHOCYTES 32.2 % (15-50); MCH 29.9 pg (26.0-34.0); MCV 93.4 fL (80.0-100.0); MEAN PLATELET VOLUME 10.2 fL (7.4-10.4); MONOCYTES 11.8 % (2-11); NEUTROPHILS 54.8 % (40-80); PLATELET COUNT 136 10x3/uL (130-400); RBC 3.61 10x6/uL (4.00-5.40); RDW 12.5 % (11.5-14.5)
[2019-04-06 07:19] LABS: WBC 3.4 10x3/uL (4.8-10.8)
[2019-04-06 07:31] LABS: ALBUMIN 2.2 g/dL (3.4-5.0); ALKALINE PHOSPHATASE 45 U/L (46-116); BILIRUBIN - TOTAL 0.13 mg/dL (0.2-1.3); CALCIUM 7.2 mg/dL (8.5-10.1); CARBON DIOXIDE 24.9 mmol/L (21.0-32.0); CHLORIDE - SERUM 113 mmol/L (98-107); CREATININE - SERUM 0.7 mg/dL (0.6-1.3); GLUCOSE 85 mg/dL (74-106); MAGNESIUM - SERUM 1.8 mg/dL (1.8-2.4); PHOSPHOROUS 2.8 mg/dL (2.5-4.9); POTASSIUM - SERUM 3.4 mmol/L (3.5-5.1); PROTEIN - SERUM 4.8 g/dL (6.4-8.2); SODIUM 143 mmol/L (136-145); eGFR NON AFRICAN AMERICAN 88 mL/min (90-120)
[2019-04-06 07:32] LABS: ALT (SGPT) 66 U/L (10-68); CALC OSMOLALITY 281 mosm/kg (275-300); UREA NITROGEN 6 mg/dL (7-18)
--- NOTE | 2019-04-06 07:48 | NUR ---
ALERT AND ORIENTED. LUNGS CLEAR BILATERALLY. HEART SOUNDS S1 AND S2 HEARD IN ALL CALIX. BOWEL SOUNDS ACTIVE X 4. SKIN INTACT WITHOUT REDNESS. DENIES PAIN. DENIES NEEDS. BED LOW. FALL PRECAUTIONS IN PLACE. CALL ANDERSON AND PERSONAL ITEMS IN REACH. WILL CONTINUE TO MONITOR.
[2019-04-06 10:22] VITALS: BP 106/42
--- NOTE | 2019-04-06 12:57 | NUR ---
RESTING IN BED. DENIES NEEDS. WILL CONTINUE TO MONITOR.
[2019-04-06 13:59] VITALS: BP 138/65
[2019-04-06] MEDS ORDERED: LEVAQUIN750 MG PO (14:56)
[2019-04-06] MEDS ORDERED: FLAGYL500 MG PO (14:57)
--- NOTE | 2019-04-06 14:59 | MORECARE ---
CASE MANAGEMENT DISCHARGE SUMMARY PATIENT: TOÑITO REEDER JOSH UNIT: [id number] ADM DATE: 04/04/19 AGE: 68 : 50 SEX: F ROOM/BED: D.3716 AUTHOR: LAUREANO,DOC PHYSICIAN: REFERRING PHYSICIAN: SYDNIE MEZA MD DATE OF SERVICE: 04/06/19 Discharge Plan Patient Name: TOÑITO REEDER Facility: [facility]:[place] : 1950 Planned Disposition: Home Anticipated Discharge Date: Discharge Date: Expected LOS: Initial Reviewer: [email or web address] Initial Review Date: 04/04/2019 Generated: 04/06/19 3:58 pm Comments DCP- Discharge Planning Updated by [email or web address]: Mary Randle on 04/06/19 1:[address] Patient Name: TOÑITO REEDER Admission Status: Elective Accout number: [id number] Admission Date: 04-04-2019 : 1950 Admission Diagnosis: Attending: SYDNIE MEZA Current LOS: 2 Anticipated DC Date: Planned Disposition: Home Primary Insurance: MEDICARE A & B Discharge Planning Comments: CM met with patient to complete initial dc planning assessment. CM educated patient on the CM role and verbal consent given by patient to complete assessment. Patient lives at home with her spouse where she is independent with her care. At discharge patient plans to return home and feels this is a safe discharge. Her daughter will be her utility worker driver home. CM discussed availability of home health, rehab services, and medical equipment. Patient denied known discharge needs at this time. CM will continue to follow and will assist as needed with dc plans/needs. [employer] Learning Support Teacher: Mary Randle DCPIA - Discharge Planning Initial Assessment Updated by [email or web address]: Mary Randle on 04/06/19 2:56 pm * Is the patient Alert and Oriented? Yes * How many steps to enter\exit or inside your home? * PCP [facility] * Pharmacy [address] * Preadmission Environment Home with Family * ADLs Independent * Equipment None * List name and contact numbers for known caregivers / representatives who currently or will assist patient after discharge: MAYRA REEDER [phone] * Verbal permission to speak to the caregivers and representatives has been obtained from the patient. N/A * Community resources currently utilized None * Additional services required to return to the preadmission environment? No * Can the patient safely return to the preadmission environment? Yes * Has this patient been hospitalized within the prior 30 days at any hospital? No Patient Name: TOÑITO REEDER Page [phone] at 1459 All edits/amendments must be made on the electronic document DICTATION DATE: 04/06/191457 QUALITY MANAGEMENT COORDINATOR: VIKRAM 04/06/191457 RPT#: [id number] DC DATE: STATUS: ADM IN [facility] [address] [place] [address] END OF REPORT
--- NOTE | 2019-04-06 15:45 | NUR ---
RESTING IN BED. DENIES NEEDS. LUIS SMART PAPERWORK. WILL CONTINUE TO MONITOR.
--- NOTE | 2019-04-06 16:47 | NUR ---
DISCHARGE EDUCATION PROVIDED BOTH WRITTEN AND VERBAL. VERBALIZED UNDERSTANDING. DENIES FURTHER QUESTIONS. STATES HAS BEEN MISSING SKETCHERS SHOES SINCE CAME TO FLOOR. CALLED ER. STATES NO SKETCHERS SHOES LEFT IN ER. PATIENT NOTIFIED. FLU SHOT GIVEN FOR DISCHARGE. IV REMOVED FROM LFA WITH TIP INTACT.
--- NOTE | 2019-04-07 18:06 | MORECARE ---
CASE MANAGEMENT DISCHARGE SUMMARY PATIENT: TOÑITO REEDER JOSH UNIT: [id number] ADM DATE: 04/04/19 AGE: 68 : 50 SEX: F ROOM/BED: D.9417 AUTHOR: LAUREANO,DOC PHYSICIAN: REFERRING PHYSICIAN: SYDNIE MEZA MD DATE OF SERVICE: 04/07/19 Discharge Plan Patient Name: TOÑITO REEDER Facility: [facility]:[place] : 1950 Planned Disposition: Home Anticipated Discharge Date: Discharge Date: 04/06/2019 Expected LOS: Initial Reviewer: [email or web address] Initial Review Date: 04/04/2019 Generated: 04/07/19 7:06 pm Comments DCP- Discharge Planning Updated by [email or web address]: Mary Randle on 04/06/19 1:[address] Patient Name: TOÑITO REEDER Admission Status: Elective Accout number: [id number] Admission Date: 04-04-2019 : 1950 Admission Diagnosis: Attending: SYDNIE MEZA Current LOS: 2 Anticipated DC Date: Planned Disposition: Home Primary Insurance: MEDICARE A & B Discharge Planning Comments: CM met with patient to complete initial dc planning assessment. CM educated patient on the CM role and verbal consent given by patient to complete assessment. Patient lives at home with her spouse where she is independent with her care. At discharge patient plans to return home and feels this is a safe discharge. Her daughter will be her hazmat truck driver home. CM discussed availability of home health, rehab services, and medical equipment. Patient denied known discharge needs at this time. CM will continue to follow and will assist as needed with dc plans/needs. Clay Digger: Mary Randle DCPIA - Discharge Planning Initial Assessment Updated by [id number]: Mary Randle on 04/06/19 2:56 pm * Is the patient Alert and Oriented? Yes * How many steps to enter\exit or inside your home? * PCP [facility] * Pharmacy [address] * Preadmission Environment Home with Family * ADLs Independent * Equipment None * List name and contact numbers for known caregivers / representatives who currently or will assist patient after discharge: MAYRA REEDER [phone] * Verbal permission to speak to the caregivers and representatives has been obtained from the patient. N/A * Community resources currently utilized None * Additional services required to return to the preadmission environment? No * Can the patient safely return to the preadmission environment? Yes * Has this patient been hospitalized within the prior 30 days at any hospital? No Last DP export: 04/06/19 1:59 p Patient Name: TOÑITO REEDER Page [id number] at 1806 All edits/amendments must be made on the electronic document DICTATION DATE: 04/07/191805 BEAN PICKER: [email or web address] 04/07/191805 RPT#: [id number] DC DATE:04/06/19 STATUS: DIS IN [facility] [address] [place] [address] END OF REPORT
== END 2019-04-06 17:51 | disposition home or self-care (01) | DRG 388 ==
LOC: D.ER 04:21 → D.MS 07:06
PROVIDERS: Family Medicine; ADMIT Internal Medicine Nephrology; ATTEND Internal Medicine Nephrology
DX: K56.7 Ileus, unspecified (principal); K85.90 Acute pancreatitis without necrosis or infection, unspecified; K56.609 Unspecified intestinal obstruction, unspecified as to partial versus complete obstruction; K52.9 Noninfective gastroenteritis and colitis, unspecified; I10 Essential (primary) hypertension; E78.5 Hyperlipidemia, unspecified; I25.10 Atherosclerotic heart disease of native coronary artery without angina pectoris; K21.9 Gastro-esophageal reflux disease without esophagitis; M19.90 Unspecified osteoarthritis, unspecified site

== ENCOUNTER → 2019-09-05 | Emergency (ER) | payer MEDICARE, OTHER ==
[~2019-09-05] VITALS: Ht 157.5 cm; Wt 89.1 kg
[~2019-09-05] MED LIST changes: +FAMOTIDINE10 MG PO; +FLAGYL500 MG PO; +LEVAQUIN750 MG PO
[2019-09-05 11:47] VITALS: Ht 157.5 cm; Wt 89.1 kg
[2019-09-05 12:21] LABS: BASOPHILS 0.2 % (0-2); EOSINOPHILS 1.3 % (0-7); HEMATOCRIT 46.8 % (36.0-48.0); HEMOGLOBIN 15.5 g/dL (12-16); IMMATURE GRANULOCYTES 1.1 % (0-5); LYMPHOCYTES 20.9 % (15-50); MCH 30.8 pg (26.0-34.0); MCHC 33.1 g/dL (31.0-37.0); MCV 92.9 fL (80.0-100.0); MEAN PLATELET VOLUME 9.7 fL (7.4-10.4); MONOCYTES 7.6 % (2-11); NEUTROPHILS 68.9 % (40-80); RBC 5.04 10x6/uL (4.00-5.40); RDW 12.9 % (11.5-14.5); WBC 10.5 10x3/uL (4.8-10.8)
[2019-09-05 12:28] LABS: CALC OSMOLALITY 276 mosm/kg (275-300); CALCIUM 9.4 mg/dL (8.5-10.1); CARBON DIOXIDE 30.8 mmol/L (21.0-32.0); CHLORIDE - SERUM 101 mmol/L (98-107); CREATININE - SERUM 1.1 mg/dL (0.6-1.3); GLUCOSE 79 mg/dL (74-106); POTASSIUM - SERUM 3.7 mmol/L (3.5-5.1); SODIUM 138 mmol/L (136-145); UREA NITROGEN 18 mg/dL (7-18); eGFR NON AFRICAN AMERICAN 52 mL/min (90-120)
[2019-09-05 12:35] LABS: PLATELET COUNT 285 10x3/uL (130-400)
[2019-09-05 12:36] LABS: ALBUMIN 3.8 g/dL (3.4-5.0); ALKALINE PHOSPHATASE 86 U/L (30-120); ALT (SGPT) 25 U/L (10-68); AMYLASE - SERUM 44 U/L (25-115); BILIRUBIN - TOTAL 0.75 mg/dL (0.2-1.3); LIPASE 192 U/L (73-393); PROTEIN - SERUM 7.7 g/dL (6.4-8.2); TROPONIN-I < 0.017 ng/mL (0.000-0.060)
[2019-09-05 12:40] LABS: BILIRUBIN NEGATIVE (NEGATIVE); GLUCOSE NEGATIVE (NEGATIVE); KETONE MODERATE mg/dL (NEGATIVE); NITRITE NEGATIVE (NEGATIVE); UROBILINOGEN NORMAL (NORMAL); WHITE CELLS - URINE 0-5 /hpf (NEGATIVE)
[2019-09-05 12:41] LABS: BACTERIA MODERATE /hpf (NEGATIVE); EPITHELIAL CELLS 0-5 /hpf (0-5); RED CELLS - URINE OCC /hpf (0-5)
[2019-09-05 16:31] VITALS: BP 115/52
== END ==
LOC: D.ER 11:40
PROVIDERS: Family Medicine
DX: R10.9 Unspecified abdominal pain (principal); K29.70 Gastritis, unspecified, without bleeding; K21.9 Gastro-esophageal reflux disease without esophagitis

== ENCOUNTER 2019-09-13 08:00 | Outpatient (CLI) | payer MEDICARE, OTHER ==
[2019-09-05 11:47] VITALS: BMI 35.9
== END 2019-09-13 23:59 | disposition home or self-care (01) ==
LOC: D.MAMMO 08:00 → D.MRI 11:30 → D.MAMMO 23:59
PROVIDERS: ATTEND Family Medicine
DX: Z12.31 Encounter for screening mammogram for malignant neoplasm of breast (principal); M54.5 Low back pain; K76.9 Liver disease, unspecified

== ENCOUNTER 2019-10-29 10:17 | Day surgery (SDC) | payer MEDICARE, OTHER ==
[~2019-10-29] VITALS: Ht 157.5 cm; Wt 88.2 kg
--- NOTE | ~2019-10-29 | OP ---
PATIENT NAME: TOÑITO REEDER MEDICAL RECORD: [id number] :[birth year] LOCATION:D.OPS ADMISSION DATE: SURGEON: STEPHENIE BELLA DO DATE OF OPERATION: 10/29/2019 PROCEDURE: Colonoscopy with polypectomy. INDICATIONS FOR THE PROCEDURE: Left lower quadrant abdominal pain and change in bowel habits. SCOPE: Olympus video pediatric colonoscope. MEDICATIONS: Propofol 500 mg IV per anesthesia. WITHDRAWAL TIME: 16 minutes. ESTIMATED BLOOD LOSS: Minimal. COMPLICATIONS: None. FINDINGS: Informed consent was given. The patient was made comfortable with the above medication. After reaching an adequate level of sedation by slow IV push, the patient was placed on her left side. A digital rectal examination was performed and was normal. The endoscope was then advanced under direct visualization through the rectum to the cecum and terminal ileum. The endoscope was slowly withdrawn and the mucosa was carefully examined. The prep quality was good. There were 2 polyps visualized on today's examination. They were both benign appearing and flat and located in the ascending colon. They ranged in size from 5-6 mm in diameter. They were both removed using a hot snare. There were a few scattered small diverticula located in the sigmoid colon. There were some adhesions in the left lower quadrant that were noted both on insertion and withdrawal of the endoscope. These are likely playing a role in the patient's symptoms, have occasional left lower quadrant pain and occasional obstructive type symptoms requiring hospitalizations. Retroflexion was performed in the rectum with visualization of grade I internal hemorrhoids without bleeding. The endoscope was withdrawn from the patient. The patient tolerated the procedure well and there were no complications. IMPRESSION: 1. Mild diverticulosis of the sigmoid colon. 2. Grade I internal hemorrhoids without bleeding. 3. Two polyps as described above, removed from the ascending colon with a hot snare. PLAN AND RECOMMENDATIONS: 1. Discharge home when recovery parameters are met. 2. Follow up biopsy specimen results. 3. High fiber diet. 4. Continue MiraLax daily to keep bowels moving on a regular basis. 5. Continue current medications. 6. Recall colonoscopy in 2-3 years for polyp surveillance. TRANSINT:[id number] Voice Confirmation ID: [id number] DOCUMENT ID: [id number] OPERATIVE REPORT [id number] TOÑITO REEDER STEPHENIE BELLA DO CC: [id number] DICTATION DATE: 10/29/[address] VENDOR: 10/29/19 [address] [facility] 10/29/19 [facility] [address] [facility] [place] [address]
[2019-10-29 11:09] VITALS: BP 116/61; Ht 157.5 cm; Wt 88.2 kg
[2019-10-29 11:09] LABS: HEMATOCRIT 42.5 % (36.0-48.0); HEMOGLOBIN 13.7 g/dL (12-16); MCH 30.4 pg (26.0-34.0); MCHC 32.2 g/dL (31.0-37.0); MCV 94.2 fL (80.0-100.0); MEAN PLATELET VOLUME 10.6 fL (7.4-10.4); RBC 4.51 10x6/uL (4.00-5.40); RDW 12.9 % (11.5-14.5); WBC 5.1 10x3/uL (4.8-10.8)
[2019-10-29 11:33] LABS: CALCIUM 8.8 mg/dL (8.5-10.1); CARBON DIOXIDE 25.1 mmol/L (21.0-32.0); CREATININE - SERUM 0.9 mg/dL (0.6-1.3); POTASSIUM - SERUM 4.1 mmol/L (3.5-5.1)
== END 2019-10-29 13:35 | disposition home or self-care (01) ==
LOC: D.OPS 10:17
PROVIDERS: Anesthesiology; ATTEND Internal Medicine Gastroenterology
DX: R10.32 Left lower quadrant pain (principal); R19.4 Change in bowel habit; K63.5 Polyp of colon; K21.9 Gastro-esophageal reflux disease without esophagitis; R13.10 Dysphagia, unspecified

== ENCOUNTER 2019-11-23 07:15 | Day surgery (SDC) | payer MEDICARE, OTHER ==
[~2019-11-23] VITALS: Ht 157.5 cm; Wt 88.9 kg
[~2019-11-23 07:15] MED LIST changes: +PEPCID40 MG PO
[2019-11-23 08:23] LABS: HEMATOCRIT 38.5 % (36.0-48.0); HEMOGLOBIN 12.7 g/dL (12-16); MCH 30.6 pg (26.0-34.0); MCV 92.8 fL (80.0-100.0); MEAN PLATELET VOLUME 10.2 fL (7.4-10.4); RBC 4.15 10x6/uL (4.00-5.40); RDW 12.3 % (11.5-14.5); WBC 5.2 10x3/uL (4.8-10.8)
[2019-11-23 08:28] VITALS: BP 110/68; Ht 157.5 cm; Wt 88.9 kg
--- NOTE | 2019-11-27 09:54 | OP ---
PATIENT NAME: TOÑITO ESPOSITO MEDICAL RECORD: [id number] :[birth year] LOCATION:D.OPS ADMISSION DATE: SURGEON: JATIN LOPEZ DO DATE OF OPERATION: 11/23/2019 PROCEDURE PERFORMED: Right endoscopic carpal tunnel release. PREOPERATIVE DIAGNOSIS: Right carpal tunnel syndrome. POSTOPERATIVE DIAGNOSIS: Right carpal tunnel syndrome. INDICATIONS: Ms. Esposito is a 69-year-old female who has had a right carpal tunnel for quite some time with some thenar atrophy noted. She had a nerve conduction study showing the carpal tunnel syndrome. Had a discussion with her that the could release it, but she could still have symptoms of numbness and tingling, but the pain should go away. She is okay with that and is aware of the risks including further damage the median nerve, bleeding, continued pain and infection and she signed the consent. SURGEON: Jatin Lopez DO DESCRIPTION OF PROCEDURE: The patient was taken to the operative suite, laid in supine position, given general anesthetic, given a gram of vancomycin due to KEFLEX ALLERGY. She had TIVA for anesthesia. She was then lightly sedated and the right upper extremity was prepped and draped in sterile fashion. Timeout was performed. Everyone was in agreeance with the correct side, site, patient and procedure. We then exsanguinated the right upper extremity. The tourniquet was inflated to 250 mmHg, it was up for 7 minutes. We then made an incision over the volar aspect and centered it over the palmaris longus tendon and then blunt dissection down to the median nerve with Ragnells. I then released the forearm fascia from distal to proximal in the incision site and then entered the carpal tunnel with dilators, I then brought in the sheath and brought in the camera and with the rasp and probe inspected the transverse carpal ligament to ensure there was no transligamentous nerve and cleaned it off to get a good view then brought in the blade and raised it up and transected the transcarpal ligament fat and herniating down into the carpal tunnel and then removed that. I used a Ragnell and scissors to ensure there were no remaining fibers of the transcarpal ligament. The tourniquet was then let down and injected the site with 10 mL of 0.25% Marcaine with epinephrine. I then closed the site with 5-0 Monocryl in inverted interrupted fashion, was placed in Steri-Strips, Adaptic, 4 x 4's, Kerlix, and a Coban lightly wrapped on the hand and wrist. She was awakened and taken to recovery in stable condition. Tourniquet was let down at 7 minutes. BLOOD LOSS: Minimal. COMPLICATIONS: None. TRANSINT:[id number] Voice Confirmation ID: [id number] DOCUMENT ID: [id number] OPERATIVE REPORT [id number] TOÑITO ESPOSITO MICHAEL D, DO at 0954 CC: [id number] DICTATION DATE: 11/23/19 1225 DRAGLINE OPERATOR: 11/23/19 [address] [facility] 11/23/[address] [address]
== END 2019-11-23 12:02 | disposition home or self-care (01) ==
LOC: D.OPS 07:15 → D.PAN 11:30 → D.OPS 11:30 → D.PAN 13:45
PROVIDERS: Anesthesiology; ATTEND Orthopaedic Surgery
DX: G56.01 Carpal tunnel syndrome, right upper limb (principal)